=== PATIENT | male | born 1965 | race Caucasian/White ===

== ENCOUNTER 2020-01-31 11:50 | Outpatient (CLI) | payer OTHER, SELFPAY ==
--- NOTE | ~2020-01-31 | US_ITS ---
EXAMINATION: US right upper quadrant DATE: 01/31/2020 12:16 INDICATION: Epigastric pain TECHNIQUE: Multiple grayscale and Doppler ultrasound images of the abdomen were obtained. COMPARISON: None FINDINGS: The pancreatic body is normal in appearance. The pancreatic head and tail are not visualized. Liver has normal echogenicity and contour, with a smooth surface. No liver lesion identified. No intrahepat ic biliary duct dilation suspected. Portal venous flow was seen in the hepatopetal, normal direction and has normal Doppler waveform. There are couple nonmobile 2 mm echogenic polyps along the nondepend ent gallbladder wall.. The gallbladder is otherwise normal in appearance. There is no cholelithiasis. The common bile duct measures 3 mm, which is normal. Sonographic Fung sign was reported as negativ e by the metal welder. IMPRESSION: 1. A couple likely benign 2 mm gallbladder polyps. Otherwise unremarkable right upper quadrant ultras ound. Reviewed, dictated and finalized at location A. IMPRESSION: 1. A couple likely benign 2 mm gallbladder polyps. Otherwise unremarkable right upper quadrant ultrasound.
== END 2020-01-31 11:51 | disposition home or self-care (01) ==
PROVIDERS: PCP Internal Medicine; Visit Provider Internal Medicine
DX: R10.13 Epigastric pain (principal)
CPT/HCPCS: 76705

== ENCOUNTER 2020-02-20 07:10 | Outpatient (CLI) | payer OTHER, SELFPAY ==
--- NOTE | ~2020-02-20 | CT_ITS ---
EXAMINATION: CT abdomen pelvis w con DATE: 02/20/2020 08:16 INDICATION: Chronic diarrhea. Weight loss. Left lower quadrant and epigastric pressure. TECHNIQUE: Computed tomography (CT) of the abdomen and pelvis was performed with 100 mL Omnipaque 350 intravenous contrast. Automated exposure control and iterative reconstruction technique were employe d. The dose-length product was 676.82 mGy-cm. COMPARISON: None. FINDINGS: The visualized portions of the lung bases are clear without pneumonia or pleural effusion. The heart size is normal. No pericardial effusion. The liver, gallbladder, spleen, pancreas, adrenal glands, and right kidney are normal. There is a 2 mm stone in left kidney. There are no dilated loops of bowel. The appendix is normal. There is mild mesenteric lymphadenopathy, likely reactive. There i s no free intraperitoneal fluid. There is mild thoracic spondylosis and moderate lower lumbar spondyl osis. IMPRESSION: 1. Mild mesenteric lymphadenopathy, likely reactive. Reviewed, dictated and finalized at location B. R OPERATOR
[2020-02-26 10:55] LABS: ANCA Screen Negative (Negative); Gliadin AB, IgG 4 Units (<20); Myeloperoxidase Ab <1.0 AI (<1.0); Proteinase-3 Ab <1.0 AI (<1.0); Reticulin IgA Negative (Negative); S cerevisiae Ab (IgA) 6.6 U (<=20.0); S cerevisiae Ab (IgG) 8.2 U (<=20.0); TTG IGA AB 1 U/mL (<4)
[2020-02-26 10:55] LABS: Fecal Fat, Ql Normal (Normal)
== END 2020-02-20 07:11 | disposition home or self-care (01) ==
LOC: CHSIMG 07:13
PROVIDERS: PCP Internal Medicine; Visit Provider Internal Medicine
DX: R19.7 Diarrhea, unspecified (principal); R63.4 Abnormal weight loss; R10.32 Left lower quadrant pain
CPT/HCPCS: 36415; 74177; 82705; 83516; 86021; 86255; 86671; 87045; 87046; 87177; 87209; 87269; 87324; 87337; 87427; Q9965

== ENCOUNTER → 2020-09-23 02:48 | Outpatient (CLI) | payer OTHER, SELFPAY ==
[2020-09-23 17:43] LABS: SARS-CoV-2 RNA PCR Negative
== END ==
PROVIDERS: PCP Internal Medicine; Visit Provider Surgery
DX: Z01.812 Encounter for preprocedural laboratory examination (principal); Z20.822 Contact with and (suspected) exposure to COVID-19
CPT/HCPCS: C9803; U0003; U0005

== ENCOUNTER 2020-09-26 01:44 | Day surgery (SDC) | payer OTHER, SELFPAY ==
[2020-09-12 14:02] VITALS: BMI 28.3
[2020-09-26 06:49] VITALS: BMI 28.3
[2020-09-26 06:52] VITALS: BP 131/81; PULSE 44; RESP 18; TEMP 36.4; O2SAT 100
[2020-09-26] MEDS: LACTATED RINGERS 1,000 ML 150 ML IV CONT (07:00)
--- NOTE | 2020-09-26 07:54 | P.PNAN_ITS ---
Anes - Initial Pre Proc Eval Procedure: Operation Date: 09/26/20 08:00 Proposed Procedures p Screening Colonoscopy - Juliano Wilks DO Date/Time: 09/26/20 07:54 Surgeon: Juliano Wilks DO Pre Op Diagnosis: neoplasm screening Patient Data Age: 55 Gender: M Height: 6 ft 2 in Weight: 100.2 kg Last Vital Signs Temp 97.6 F 09/26/20 06:52 Pulse 44 L 09/26/20 06:52 Resp 18 09/26/20 06:52 BP 131/81 09/26/20 06:52 Pulse Ox 100 09/26/20 06:52 Allergies Allergy/AdvReac Type Severity Reaction Status Date / Time No Known Allergies Allergy Verified 09/12/20 14:02 Home Medications Medication Instructions Recorded Confirmed Type No Home Medications 02/23/20 09/12/20 History Patient hx anesthesia problems: none Family hx anesthesia problems: none PMFSH Past Medical History Medical History (Updated 09/26/20 @ 07:49 by Moshe Brannon MD) Healthy adult Social History Social History Smoking status: Never smoker Tobacco type: smokeless tobacco Smokeless tobacco user: chewing tobacco Additional smoking assessment comments: HAS CHEWED TOBACCO FOR 17 YEARS Alcohol intake: current Drinks per week: 2 Substance use: never Substance use type: does not use Gender identity (if verbalized by the patient): Male Spiritual care concerns: No Anes - Eval Final PreProcedure Day of Procedure 09/26/20 07:54 Patient weight: overweight Heart: regular rate and rhythm Lungs: clear to auscultation Airway: Mallampati scale class II Neurological: alert and oriented Last oral intake: >/= 8 hours ASA classification: II Emergent: no Anesthetic plan: proceed Anesthesia type and monitoring: general GIVS and standard monitoring Informed Consent: The patient's anesthetic plan and its attendant risks and be nefits were discussed with the patient/family/POA. Questions were solicited and answers provided to the satisfaction of the patient/family/POA.
--- NOTE | 2020-09-26 07:56 | PM.IMHP ---
H&P: HPI History of Present Illness Date/Time: 09/26/20 07:56 Chief Complaint: screening for colorectal cancer Narrative: this is a 55-year-old man who presents for his 1st colonoscopy. He denies any prior history of hematochezia or melena. He has a cousin who had colon cancer in his 40s, but no first-degree relatives. Review of Systems Review of Systems: All systems reviewed & are unremarkable except as noted in HPI and below Constitutional: Constitutional: Denies chills, Denies fever(s), Denies headache(s) and Denies weight loss Eyes: Eyes: Denies change in vision ENT: Denies dizziness, Denies headache(s), Denies neck mass and Denies throat swelling Cardiovascular: Cardiovascular: Denies chest pain, Denies lightheadedness and Denies dyspnea Respiratory: Respiratory: Denies cough, Denies dyspnea and Denies wheezing Gastrointestinal: Gastrointestinal: Denies abdominal pain, Denies change in bowel habits, Denies nausea and Denies vomiting Genitourinary: Genitourinary: Denies hematuria and Denies dysuria Musculoskeletal: Musculoskeletal: Reports as per HPI Integumentary/Breasts: Skin/Breast: Reports as per HPI Neurologic: Denies dizziness and Denies headache(s) Allergic/Immunologic: Allergic/Immunologic: Denies throat swelling and Denies wheezing PMFSH Past Medical History Medical History (Updated 09/26/20 @ 07:57 by Juliano Wilks DO) Healthy adult Social History Social History Smoking status: Never smoker Tobacco type: smokeless tobacco Smokeless tobacco user: chewing tobacco Additional smoking assessment comments: HAS CHEWED TOBACCO FOR 17 YEARS Alcohol intake: current Drinks per week: 2 Substance use: never Substance use type: does not use Gender identity (if verbalized by the patient): Male Spiritual care concerns: No Meds Home Medications and Allergies Home Medications Medication Instructions Recorded Confirmed Type No Home Medications 02/23/20 09/12/20 History Allergies Allergy/AdvReac Type Severity Reaction Status Date / Time No Known Allergies Allergy Verified 09/12/20 14:02 Vital Signs Vital Signs - 24 hr 09/26/20 06:52 Temperature 36.4 C Pulse Rate 44 L Respiratory Rate 18 Blood Pressure 131/81 Pulse Oximetry 100 Exam Const: General: no acute distress and alert Orientation/consciousness: patient oriented x3 HENMT: Head: normocephalic and atraumatic Ears: hearing grossly normal bilaterally General nose exam: Normal nares present Mouth: Yes Normal oral and palatal mucosa present Eyes: Periorbital: periorbital findings normal Sclera: sclerae normal EOM: EOMs intact bilaterally Neck: Neck: normal visual inspection, no lymphadenopathy and trachea midline Chest: Chest palpation & inspection: normal inspection of the chest Resp: Effort & Inspection: normal respiratory effort Auscultation: clear to auscultation bilaterally Cardio: Jugular venous distension: no JVD Rate: regular rate Rhythm: regular rhythm Heart sounds: S1 normal heart sound present and S2 normal heart sound present Peripheral pulses: Peripheral pulses 2+ throughout GI: Inspection: normal to inspection GI Palp: Yes Soft to palpation, No Tenderness to palpation present (GI), No Guarding due to palpation present (GI) and No Rebound tenderness present Percussion: Yes normal to percussion Auscultation: normal bowel sounds : General: Yes no CVA tenderness Back/Spine/Pelvis: Back: no CVA tenderness Neuro: General: patient oriented x3, no focal motor deficits and CN's II-XI intact bilaterally Cognition (Neuro): normal cognition Speech: normal speech Motor exam (neuro): 5/5 motor strength present throughout Extrem: General: capillary refill normal and no clubbing, cyanosis or edema Assessment and Plan Assessment and plan (1) Screening for colorectal cancer: Code(s): Z12.11 - Encounter for screening for malignant neoplasm of colon; Z12.12 - Encounte
[2020-09-26 08:30] VITALS: BP 99/68; PULSE 44; RESP 14; O2SAT 100
[2020-09-26 08:40] VITALS: BP 105/65; PULSE 44; RESP 14; O2SAT 100
[2020-09-26 08:50] VITALS: BP 122/70; PULSE 43; RESP 16; O2SAT 100
== END 2020-09-26 09:08 | disposition home or self-care (01) ==
PROVIDERS: PCP Internal Medicine; Visit Provider Surgery
PROC: 0DJD8ZZ Inspection of Lower Intestinal Tract, Via Natural or Artificial Opening Endoscopic (ICD-10-PCS; CPT 45378; principal; 2020-09-26 08:00)
DX: Z12.11 Encounter for screening for malignant neoplasm of colon (principal); K57.30 Diverticulosis of large intestine without perforation or abscess without bleeding; F17.220 Nicotine dependence, chewing tobacco, uncomplicated
CPT/HCPCS: 45378; C9803; J2704; J7120; U0003; U0005

== ENCOUNTER 2021-07-07 14:52 | Outpatient (CLI) | payer BC, SELFPAY ==
--- NOTE | ~2021-07-07 | XR_ITS ---
XR hand RT min 3V DATE: 07/07/2021 15:15 INDICATION: Right hand pain after injury from or erosive type dropping and tips of fingers TECHNIQUE: 3 views COMPARISON: None FINDINGS: There is a nondisplaced linear oblique fracture of the tuft of the distal phalanx of the th ird digit. No fracture or dislocation, periosteal reaction or bone destruction. No erosive change or chondrocalc inosis. IMPRESSION: Nondisplaced linear oblique fracture of the tuft of the distal phalanx of the third digit Reviewed, dictated and finalized at location A. IMPRESSION: Nondisplaced linear oblique fracture of the tuft of the distal phal anx of the third digit
== END 2021-07-07 14:53 | disposition home or self-care (01) ==
LOC: CHSIMG 14:55
PROVIDERS: PCP Internal Medicine; Visit Provider Nurse Practitioner Family
DX: M79.641 Pain in right hand (principal); S69.91XA Unspecified injury of right wrist, hand and finger(s), initial encounter
CPT/HCPCS: 73130